=== PATIENT | male | born 1970 | race Caucasian/White ===

== ENCOUNTER 2018-12-04 13:42 | Emergency (ER) | payer OTHER ==
[2018-12-04 14:05] VITALS: BP 137/87
--- NOTE | 2018-12-04 14:57 | UC ---
Minor Trauma HPI - HPI Summary HPI Summary: 48-year-old male presents with complaints of right-sided chest wall pain. States 4 days ago he tripped and struck his right mid chest wall on the edge of a bench. He complains of sharp pain with deep breath, cough, sneezing, or laughing. States his also noted 2 "red spot" on his left upper back. Denies fever, chills, palpitations, diaphoresis, SOB, abdominal pain, nausea, or vomiting. - History of Current Complaint Chief Complaint: UCBackPain Stated Complaint: RIB INJURY Time Seen by Provider: 12/04/18 14:44 Hx Obtained From: Patient Pain Intensity: 5 - Allergies/Home Medications Allergies/Adverse Reactions: Allergies Allergy/AdvReac Type Severity Reaction Status Date / Time peanut Allergy Severe Anaphylatic Verified 12/04/18 14:05 Shock environmental Allergy Congestion Uncoded 12/04/18 14:05 Home Medications: Home Medications Albuterol inh POWDER (NF) [Proair Respiclick] 2 puff INH Q4HR PRN 12/04/18 [ History Confirmed 12/04/18] EPINEPHrine [Epipen] 1 unit IM ONCE PRN 12/04/18 [History Confirmed 12/04/18] Fluticasone-Salmeterol 250-50* [Advair Diskus 250-50*] 2 puff INH BID 12/04/18 [ History Confirmed 12/04/18] Ibuprofen 400 mg PO ONCE PRN 12/04/18 [History Confirmed 12/04/18] Montelukast Sodium 1 tab PO DAILY 12/04/18 [History Confirmed 12/04/18] PMH/Surg Hx/FS Hx/Imm Hx Previously Healthy: Yes Respiratory History: Asthma - Surgical History Surgical History: None - Social History Alcohol Use: Daily Substance Use Type: None Smoking Status (MU): Light Every Day Tobacco Smoker Amount Used/How Often: 1ppd Review of Systems All Other Systems Reviewed And Are Negative: Yes Constitutional: Negative: Fever, Chills Skin: Positive: Bruising Respiratory: Negative: Shortness Of Breath, Cough Cardiovascular: Negative: Chest Pain Gastrointestinal: Positive: Negative Genitourinary: Positive: Negative Musculoskeletal: Positive: Other: - Right chest wall pain Neurological: Positive: Negative Is Patient Immunocompromised?: No Physical Exam - Summary Physical Exam Summary: GENERAL APPEARANCE: Well developed, well nourished, alert and cooperative, and appears to be in no acute distress. CARDIAC: Normal S1 and S2. No S3, S4 or murmurs. Rhythm is regular. There is no peripheral edema, cyanosis or pallor. Extremities are warm and well perfused. Capillary refill is less than 2 seconds. Peripheral pulses intact. LUNGS: Right lateral mid chest wall tenderness without crepitus or subcutaneous emphysema. Clear to auscultation without rales, rhonchi, wheezing or diminished breath sounds. ABDOMEN: Positive bowel sounds. Soft, nondistended, nontender. No guarding or rebound. No masses or hepatosplenomegally. MUSKULOSKELETAL: ROM intact to all extremities. No joint erythema or tenderness. Normal muscular development. Normal gait. SKIN: Skin normal color, texture and turgor. There are 2 circular, erythematous plaques to the left upper back. Triage Information Reviewed: Yes Vital Signs: Initial Vital Signs Temp 97.9 F 12/04/18 14:01 Pulse 82 12/04/18 14:01 Resp 18 12/04/18 14:01 BP 137/87 12/04/18 14:01 Pulse Ox 98 12/04/18 14:01 Vital Signs Reviewed: Yes Diagnostics - Radiology No standard instances Radiology Interpretation Completed By: Radiologist Summary of Radiographic Findings: Order Information: RIBS RT UNI W/PA CH MIN 3 VWS. Accession Number: [id number]. CPT: 45690. Indication: RIGHT anterior and lateral rib pain under the RIGHT breast. Pain with cough. for sudden movements. Comparison: No relevant prior exams available on the [facility] PACS for comparison. Technique: Dual energy PA chest and 4 dedicated RIGHT rib views obtained. Report: Suggestion of a nondisplaced fracture involving the anterior margin of the RIGHT sixth rib corresponding with the site of clinical concern based on the overlying skin marker. Negative for pulmonary contusion, pleural effusion, or pneumothorax. The heart, pulmonary vasculature, and mediastinal contours are unremarkable. IMPRESSION: #. Probable nondisplaced fracture at the anterior margin of the RIGHT sixth rib. Negative for associated pneumothorax. Minor Trauma Course/Dx - Course Course Of Treatment: 48-year-old male presents with complaints of right-sided chest wall pain. States 4 days ago he tripped and struck his right mid chest wall on the edge of a bench. He complains of sharp pain with deep breath, cough, sneezing, or laughing. States his also noted 2 "red spot" on his left upper back. Denies fever, chills, palpitations, diaphoresis, SOB, abdominal pain, nausea, or vomiting. Afebrile. VSS. Patient had right lateral mid chest wall tenderness without crepitus or subcutaneous emphysema. Clear to auscultation without rales , rhonchi, wheezing or diminished breath sounds. There were also 2 circular, erythematous plaques to the left upper back consistent with ringworm. Rib x-ray and CXR obtained. Showed probable fracture of the right 6th anterior rib without evidence of pneumothorax. Recommending conservative treatment for rib fracture including activity modification, OTC analgesics, deep breathing exercises, and splinting. Will also provide him with prescription for clotrimazole cream to treat the ringworm. He is to follow up with his primary care provider in 5-7 days if no improvement in symptoms. Anticipatory guidance and warning symptoms were reviewed with the patient. Verbalizes understanding and agrees with POC. - Differential Dx/Diagnosis Differential Diagnosis/HQI/PQRI: Contusion(s), Fracture Provider Diagnosis: Chest wall contusion, Ringworm Discharge - Sign-Out/Discharge Documenting (check all that apply): Patient Departure All imaging exams completed and their final reports reviewed: Yes - Discharge Plan Condition: Stable Disposition: HOME Prescriptions: Clotrimazole 1% CREAM* [Clotrimazole 1%*] 1 applic TOPICAL BID #1 tube Patient Education Materials: Rib Fracture (ED), Skin Yeast Infection (ED) Referrals: No Primary Care Phys,NOPCP [Primary Care Provider] - Additional Instructions: The x-ray performed in the clinic today showed a possible rib fracture of the right 6th rib. Apply ice to the affected area for 15-20 minutes at least 4 times a day to help with the pain and swelling. Take acetaminophen (Tylenol) or ibuprofen (Advil, Motrin) according to directions as needed for pain. To prevent pneumonia, it is import that you perform the deep breathing exercises that were discussed with you every 2 hours while awake. Use a pillow or folded blanket to split your chest wall if you need to sneeze or cough. The spots on your back are suspicious for ringworm. Apply clotrimazole cream to the affected area(s) twice a day until clear. Return here or follow up with your primary care provider in 5-7 days if symptoms do not improve. Seek immediate medical attention if you develop fever greater than 100.5 F, have severe pain not managed with pain medication, difficulty breathing, or have any worsening of symptoms. - Billing Disposition and Condition Condition: STABLE Disposition: Home
== END 2018-12-04 15:25 | disposition home or self-care (01) ==
LOC: UCEAST 13:42
DX: S20.219A Contusion of unspecified front wall of thorax, initial encounter (principal); W01.190A Fall on same level from slipping, tripping and stumbling with subsequent striking against furniture, initial encounter; Y92.9 Unspecified place or not applicable; B35.4 Tinea corporis; F17.210 Nicotine dependence, cigarettes, uncomplicated
CPT/HCPCS: 99202; G0463